=== PATIENT | female | born 1985 | race Caucasian/White ===

== ENCOUNTER 2018-10-26 11:34 | Emergency (ER) | payer MEDICAID ==
[~2018-10-26] VITALS: Wt 68.2 kg
[2018-10-26 12:10] VITALS: Wt 68.2 kg
[2018-10-26] MEDS ORDERED: ONDANSETRON 4 MG INJ IV STA (13:22)
[2018-10-26] MEDS ORDERED: ACETAMINOPHEN 500 MG TAB PO STA (13:22)
[2018-10-26] MEDS ORDERED: SOD CHLORIDE 0.9% 1,000 ML IV STA (13:22)
[2018-10-26] MEDS ORDERED: IBUPROFEN 800 MG TAB PO ONE (13:30)
[2018-10-26] MEDS ORDERED: CEFTRIAXONE 1 GM/50 ML (PMX) 50 ML IVPB ONE (15:30)
[2018-10-26] MEDS ORDERED: IBUP-1542 PO (15:40)
[2018-10-26] MEDS ORDERED: PROM6.2515 PO (15:40)
[2018-10-26] MEDS ORDERED: LEVO750T25 PO (15:40)
[2018-10-26] MEDS ORDERED: ACET500C5 PO (15:40)
[2018-10-26 15:44] VITALS: BP 106/59; PULSE 105; RESP 20
--- NOTE | 2018-10-26 15:47 | ERD ---
ER Documentation Chief Complaint Chief Complaint since Fri: chills, dizzy, vomiting, PAT[place], eye pain; no relief w tylenol HPI 33-year-old female presenting with headache and fever with episodes of vomiting and cough for the last 3 days. Patient has not taken medication today. Patient has not no sore throat. She has no abdominal pain. No change in urination or bowel movement. Denies medical problems. NKDA. Surgical history denies. Social history denies ROS All systems reviewed and are negative except as per history of present illness. Medications Home Meds Active Scripts Acetaminophen* (Tylophen*) 500 Mg Capsule, 2 CAP PO Q8H PRN for PAIN AND OR ELEVATED TEMP, #20 CAP Prov:KRISHNA NIELSEN PA-C 10/26/18 Ibuprofen* (Motrin*) 600 Mg Tab, 600 MG PO Q6, #30 TAB Prov:KRISHNA NIELSEN PA-C 10/26/18 Promethazine Hcl* (Promethazine Hcl* Syrup) 6.25 Mg/5 Ml Syrup, 6.25 MG PO Q6H PRN for COUGH, #100 ML Prov:KRISHNA NIELSEN PA-C 10/26/18 Levofloxacin* (Levaquin*) 750 Mg Tablet, 750 MG PO DAILY for 5 Days, TAB Prov:KRISHNA NIELSEN PA-C 10/26/18 Allergies Allergies: Coded Allergies: No Known Allergy (Unverified , 10/26/18) PMhx/Soc Medical and Surgical Hx: pt denies Medical Hx, pt denies Surgical Hx Hx Alcohol Use: No Hx Substance Use: No Hx Tobacco Use: No Smoking Status: Never smoker FmHx Family History: No diabetes, No coronary disease, No other Physical Exam Vitals Vital Signs Date Temp Pulse Resp B/P (MAP) Pulse Ox O2 O2 Flow FiO2 Time Delivery Rate 10/26/18 102.0 128 18 115/68 97 12:10 (84) Physical Exam GENERAL: The patient is well-appearing, well-nourished, in no acute distress HEENT: Atraumatic. Conjunctivae are pink. Pupils equal, round, and reactive to light. There is no scleral icterus. Tympanic membranes clear bilaterally. Oropharynx clear. NECK: C-spine is soft and supple. There is no meningismus. There is no cervical lymphadenopathy. CHEST: Clear to auscultation bilaterally. There are no rales, wheezes or rhonchi. HEART: Regular rate and rhythm. No murmurs, clicks, rubs or gallops. No S3 or S4. ABDOMEN:Soft, nontender and nondistended. Good bowel sounds. No rebound or guarding. No gross peritonitis. No gross organomegaly or masses. Result Diagram: 10/26/18 1446 10/26/18 1446 Results 24 hrs Laboratory Tests Test 10/26/18 13:43 10/26/18 13:45 10/26/18 14:46 Bedside Urine pH (LAB) 6.5 Bedside Urine Protein (LAB) Negative Bedside Urine Glucose (UA) Negative Bedside Urine Ketones (LAB) Negative Bedside Urine Blood Trace-lysed Bedside Urine Nitrite (LAB) Negative Bedside Urine Leukocyte Esterase Negative (L POC Beta HCG, Qualitative NEGATIVE White Blood Count 6.5 10^3/ul Red Blood Count 4.26 10^6/ul Hemoglobin 10.4 g/dl Hematocrit 32.9 % Mean Corpuscular Volume 77.2 fl Mean Corpuscular Hemoglobin 24.4 pg Mean Corpuscular 31.6 g/dl Hemoglobin Concent Red Cell Distribution Width 14.6 % Platelet Count 176 10^3/UL Mean Platelet Volume 9.9 fl Immature Granulocytes % 0.500 % Neutrophils % 84.8 % Lymphocytes % 7.5 % Monocytes % 6.9 % Eosinophils % 0.0 % Basophils % 0.3 % Nucleated Red Blood Cells % 0.0 /100WBC Immature Granulocytes # 0.030 10^3/ul Neutrophils # 5.5 10^3/ul Lymphocytes # 0.5 10^3/ul Monocytes # 0.5 10^3/ul Eosinophils # 0.0 10^3/ul Basophils # 0.0 10^3/ul Nucleated Red Blood Cells # 0.0 10^3/ul Sodium Level 137 mmol/L Potassium Level 3.2 mmol/L Chloride Level 106 mmol/L Carbon Dioxide Level 19 mmol/L Anion Gap 12 Blood Urea Nitrogen 3 mg/dl Creatinine 0.50 mg/dl Est Glomerular Filtrat Rate mL/min > 60 mL/min Glucose Level 108 mg/dl Calcium Level 8.1 mg/dl Total Bilirubin 0.3 mg/dl Direct Bilirubin 0.00 mg/dl Indirect Bilirubin 0.3 mg/dl Aspartate Amino Transf (AST/SGOT) 24 IU/L Alanine 35 IU/L Aminotransferase (ALT/SGPT) Alkaline Phosphatase 70 IU/L Lactate Dehydrogenase 455 IU/L Total Protein 6.6 g/dl Albumin 3.5 g/dl Globulin 3.10 g/dl Albumin/Globulin Ratio 1.12 Current Medications Medications Dose Sig/Lara Start Time Status Last (Trade) Ordered Route PRN Stop Time Admin Dose Reason Admin 1,000 mg ONCE STAT 10/26/18 DC 10/26/18 Acetaminophen PO 13:22 13:46 (Tylenol 10/26/18 13:25 Tab) Ibuprofen 800 mg ONCE ONCE 10/26/18 DC 10/26/18 (Motrin) PO 13:30 13:50 10/26/18 13:31 Sodium 1,000 ml @ Q1H STAT 10/26/18 DC 10/26/18 Chloride 1,000 mls/hr IV 13:22 13:38 10/26/18 14:21 Ondansetron 4 mg ONCE STAT 10/26/18 DC 10/26/18 HCl (Zofran IV 13:22 13:46 Inj) 10/26/18 13:25 Ceftriaxone 50 ml @ ONCE ONCE 10/26/18 10/26/18 Sodium 100 mls/hr IVPB 15:30 15:11 10/26/18 15:59 Procedures/MDM DIAGNOSTIC IMAGING REPORT Patient: PJ WOOD : 1985 Age: 33 Sex: F MR #: [id number] DOS: 10/26/18 1430 Ordering MD: ABEBA NIELSEN PA-C Location: [facility] Room/Bed: PROCEDURE: XR Chest. CLINICAL INDICATION: Abdominal pain TECHNIQUE: Single frontal view of the chest was obtained COMPARISON: None FINDINGS: The heart and mediastinum are within normal limits. There is a mild patchy left lower lobe infiltrate. There is no pleural effusion or pneumothorax. RPTAT: AA IMPRESSION: Mild patchy left lower lobe infiltrate. ER Course: 1L NS given in ED. 1G Rocephin given in IV. Ibuprofen and Tylenol gi erika in ED. influenza negative. MDM: 33-year-old female presenting with body aches and chills. I have low suspicion for respiratory distress or hypoxia. Patient is resting comfortably and is satting at 97% on room air. Patient has pneumonia will be treated with oral antibiotics. I have low suspicion for meningitis or sepsis. I have low suspicion for other acute abdominal emergencies or bacterial [employer] infections. Patient is nontoxic-appearing. Patient is discharged with strict ER precautions and told to follow-up with primary care within 1-2 days for close evaluation. Patient is told if symptoms change or worsen to return ER immediately. All questions answered at discharge Departure Diagnosis: Primary Impression: Pneumonia Condition: Stable Patient Instructions: Pneumonia Referrals: [facility] YOU HAVE RECEIVED A MEDICAL SCREENING EXAM AND THE RESULTS INDICATE THAT YOU DO NOT HAVE A CONDITION THAT REQUIRES URGENT TREATMENT IN THE EMERGENCY DEPARTMENT. FURTHER EVALUATION AND TREATMENT OF YOUR CONDITION CAN WAIT UNTIL YOU ARE SEEN IN YOUR DOCTORS OFFICE WITHIN THE NEXT 1-2 DAYS. IT IS YOUR RESPONSIBILITY TO MAKE AN APPOINTMENT FOR FOLOW-UP CARE. IF YOU HAVE A PRIMARY DOCTOR --you should call your primary doctor and schedule an appointment IF YOU DO NOT HAVE A PRIMARY DOCTOR YOU CAN CALL OUR PHYSICIAN REFERRAL HOTLINE AT IF YOU CAN NOT AFFORD TO SEE A PHYSICIAN YOU CAN CHOSE FROM THE FOLLOWING [facility] [address]. [facility] [address] [facility] [facility] [address] [facility] [facility] [address] [facility] [address] [facility]. [address] Additional Instructions: FOLLOW UP WITH YOUR PRIMARY CARE PHYSICIAN TOMORROW.Return to this facility if you are not improving as expected. KRISHNA NIELSEN PA-C Oct 26, 2018 15:47
== END 2018-10-26 15:46 | disposition home or self-care (01) ==
LOC: FTE 11:34
DX: J18.9 Pneumonia, unspecified organism (principal); R11.10 Vomiting, unspecified
CPT/HCPCS: 36415; 71045; 80053; 81003; 81025; 83615; 85025; 87040; 87400; 96374; 96375; J0696; J2405; J7030; Z7502; Z7610